=== PATIENT | male | born 1970 | race Caucasian/White ===

== ENCOUNTER 2018-10-14 10:08 | Emergency (ER) | payer OTHER ==
[~2018-10-14] VITALS: Ht 157.5 cm; Wt 65.8 kg
[2018-10-14 10:13] VITALS: BP 120/90
[2018-10-14] MEDS ORDERED: [UNRECOGNIZED DRUG - CODE] PO (11:06)
--- NOTE | 2018-10-29 13:18 | ED Cardiac General ---
History of Present Illness General Chief Complaint: Chest Pain Nursing Triage Note: test History of Present Illness Date Seen by Provider: Oct 29, 2018 Time Seen by Provider: 13:17 Allergies and Home Medications Allergies Coded Allergies: No Known Drug Allergies (Unverified , 10/14/18) Home Medications Montez Syrup 473 Ml Syrup, 30 ML PO ONCE Prescribed by: TANNA MCKENNA on 10/14/18 1106 Patient Home Medication List Home Medication List Reviewed: Yes Review of Systems Review of Systems Constitutional: no symptoms reported Respiratory: No Symptoms Reported, See HPI Cardiovascular: No Symptoms Reported, See HPI Gastrointestinal: No Symptoms Reported, See HPI Genitourinary: No Symptoms Reported, See HPI Psychiatric/Neurological: No Symptoms Reported, See HPI Endocrine: No Symptoms Reported, See HPI Hematologic/Lymphatic: No Symptoms Reported, See HPI Past Tahlfmq-Szdzdh-Qeejgu Hx Patient Social History Recent Foreign Travel: No Contact w/Someone Who Travel: No Recent Infectious Disease Expo: No Physical Exam Vital Signs Capillary Refill : NONE Height, Weight, BMI Height: 5'2.00" Weight: 145lbs. 0oz. 65.516367aw; BMI Method:Stated General Appearance: No Apparent Distress Progress/Results/Core Measures Results/Orders My Orders Orders - GAMALIEL MORRIS MD Iv Push Traffic Control Specialist Ed (10/14/18 ) Im Injection Antibiotic Ed (10/14/18 15:00) Flu Vac Powell Ed (10/14/18 ) Vaccine Administration Single (10/14/18 ) Im Injection Antibiotic Ed (10/29/18 ) Vaccine Administration Single (10/29/18 ) Blood Pressure Mean: 100 Departure Impression Primary Impression: Chest wall pain Additional Impression: Chest pain Disposition: 01 HOME, SELF-CARE Condition: Improved Departure-Patient Inst. Patient Instructions: Acid Reflux (Gastroesophageal Reflux Disease), Adult (DC) Scripts Montez Syrup (Montez Syrup) 473 Ml Syrup 30 ML PO ONCE for 1 Day, ML Prov: GAMALIEL MORRIS MD 10/14/18 GAMALIEL MORRIS MD Oct 29, 2018 13:18
--- NOTE | 2018-10-29 13:28 | ED Cardiac General ---
History of Present Illness General Chief Complaint: Chest Pain Nursing Triage Note: test History of Present Illness Date Seen by Provider: Oct 29, 2018 Time Seen by Provider: 13:28 Allergies and Home Medications Allergies Coded Allergies: No Known Drug Allergies (Unverified , 10/14/18) Home Medications Montez Syrup 473 Ml Syrup, 30 ML PO ONCE Prescribed by: TANNA MCKENNA on 10/14/18 1106 Patient Home Medication List Home Medication List Reviewed: Yes Review of Systems Review of Systems Constitutional: no symptoms reported Respiratory: No Symptoms Reported, See HPI Cardiovascular: No Symptoms Reported, See HPI Gastrointestinal: No Symptoms Reported, See HPI Genitourinary: No Symptoms Reported, See HPI Psychiatric/Neurological: No Symptoms Reported, See HPI Endocrine: No Symptoms Reported, See HPI Hematologic/Lymphatic: No Symptoms Reported, See HPI Past Zupghkx-Rathmi-Zovoud Hx Patient Social History Recent Foreign Travel: No Contact w/Someone Who Travel: No Recent Infectious Disease Expo: No Physical Exam Vital Signs Capillary Refill : NONE Height, Weight, BMI Height: 5'2.00" Weight: 145lbs. 0oz. 65.610506vf; BMI Method:Stated General Appearance: No Apparent Distress Progress/Results/Core Measures Results/Orders My Orders Orders - GAMALIEL MORRIS MD Iv Push Merchant Tailor Ed (10/14/18 ) Im Injection Antibiotic Ed (10/14/18 15:00) Flu Vac Powell Ed (10/14/18 ) Vaccine Administration Single (10/14/18 ) Im Injection Antibiotic Ed (10/29/18 ) Vaccine Administration Single (10/29/18 ) Blood Pressure Mean: 100 Departure Impression Primary Impression: Chest wall pain Additional Impression: Chest pain Disposition: 01 HOME, SELF-CARE Condition: Improved Departure-Patient Inst. Patient Instructions: Acid Reflux (Gastroesophageal Reflux Disease), Adult (DC) Scripts Montez Syrup (Montez Syrup) 473 Ml Syrup 30 ML PO ONCE for 1 Day, ML Prov: GAMALIEL MORRIS MD 10/14/18 Copy Copies To 1: GAMALIEL MORRIS MD, JOHN E MD Oct 29, 2018 13:28
--- NOTE | 2018-10-29 13:58 | ED Cardiac General ---
History of Present Illness General Chief Complaint: Chest Pain Nursing Triage Note: test History of Present Illness Date Seen by Provider: Oct 29, 2018 Time Seen by Provider: 13:58 Allergies and Home Medications Allergies Coded Allergies: No Known Drug Allergies (Unverified , 10/14/18) Home Medications Montez Syrup 473 Ml Syrup, 30 ML PO ONCE Prescribed by: TANNA MCKENNA on 10/14/18 1106 Patient Home Medication List Home Medication List Reviewed: Yes Review of Systems Review of Systems Constitutional: no symptoms reported Respiratory: No Symptoms Reported, See HPI Cardiovascular: No Symptoms Reported, See HPI Gastrointestinal: No Symptoms Reported, See HPI Genitourinary: No Symptoms Reported, See HPI Psychiatric/Neurological: No Symptoms Reported, See HPI Endocrine: No Symptoms Reported, See HPI Hematologic/Lymphatic: No Symptoms Reported, See HPI Past Vwkhkeh-Gbshoo-Ldgprt Hx Patient Social History Recent Foreign Travel: No Contact w/Someone Who Travel: No Recent Infectious Disease Expo: No Physical Exam Vital Signs Capillary Refill : NONE Height, Weight, BMI Height: 5'2.00" Weight: 145lbs. 0oz. 65.720234qx; BMI Method:Stated General Appearance: No Apparent Distress Progress/Results/Core Measures Results/Orders My Orders Orders - GAMALIEL MORRIS MD Iv Push Channeler Insole Ed (10/14/18 ) Im Injection Antibiotic Ed (10/14/18 15:00) Flu Vac Powell Ed (10/14/18 ) Vaccine Administration Single (10/14/18 ) Im Injection Antibiotic Ed (10/29/18 ) Vaccine Administration Single (10/29/18 ) Blood Pressure Mean: 100 Departure Impression Primary Impression: Chest wall pain Additional Impression: Chest pain Disposition: 01 HOME, SELF-CARE Condition: Improved Departure-Patient Inst. Patient Instructions: Acid Reflux (Gastroesophageal Reflux Disease), Adult (DC) Scripts Montez Syrup (Montez Syrup) 473 Ml Syrup 30 ML PO ONCE for 1 Day, ML Prov: GAMALIEL MORRIS MD 10/14/18 Copy Copies To 1: GAMALIEL MORRIS MD, JOHN E MD Oct 29, 2018 13:58
--- NOTE | 2018-10-29 14:04 | ED Cardiac General ---
History of Present Illness General Chief Complaint: Chest Pain Nursing Triage Note: test History of Present Illness Date Seen by Provider: Oct 29, 2018 Time Seen by Provider: 14:03 Allergies and Home Medications Allergies Coded Allergies: No Known Drug Allergies (Unverified , 10/14/18) Home Medications Montez Syrup 473 Ml Syrup, 30 ML PO ONCE Prescribed by: TANNA MCKENNA on 10/14/18 1106 Patient Home Medication List Home Medication List Reviewed: Yes Review of Systems Review of Systems Constitutional: no symptoms reported Respiratory: No Symptoms Reported, See HPI Cardiovascular: No Symptoms Reported, See HPI Gastrointestinal: No Symptoms Reported, See HPI Genitourinary: No Symptoms Reported, See HPI Psychiatric/Neurological: No Symptoms Reported, See HPI Endocrine: No Symptoms Reported, See HPI Hematologic/Lymphatic: No Symptoms Reported, See HPI Past Fhkfepa-Avbane-Lvotps Hx Patient Social History Recent Foreign Travel: No Contact w/Someone Who Travel: No Recent Infectious Disease Expo: No Physical Exam Vital Signs Capillary Refill : NONE Height, Weight, BMI Height: 5'2.00" Weight: 145lbs. 0oz. 65.454724ir; BMI Method:Stated General Appearance: No Apparent Distress HEENT: PERRL/EOMI, TMs Normal, Normal ENT Inspection, Pharynx Normal Neck: Full Range of Motion, Normal Inspection, Non Tender Respiratory: Chest Non Tender, Lungs Clear, Normal Breath Sounds, No Accessory Muscle Use, No Respiratory Distress Cardiovascular: Regular Rate, Rhythm, No Edema, No Gallop, No JVD, No Murmur, Normal Peripheral Pulses Gastrointestinal: Normal Bowel Sounds, No Organomegaly, No Pulsatile Mass, Non Tender Extremity: Normal Capillary Refill, Normal Inspection, Normal Range of Motion, Non Tender, No Calf Tenderness, No Pedal Edema Neurologic/Psychiatric: Alert, Oriented x3, No Motor/Sensory Deficits, Normal Mood/Affect Skin: Normal Color, Warm/Dry Lymphatic: No Adenopathy Progress/Results/Core Measures Results/Orders My Orders Orders - MORRISGAMALIEL Akins MD Iv Push Audiology Technician Ed (10/14/18 ) Im Injection Antibiotic Ed (10/14/18 15:00) Flu Vac Powell Ed (10/14/18 ) Vaccine Administration Single (10/14/18 ) Im Injection Antibiotic Ed (10/29/18 ) Vaccine Administration Single (10/29/18 ) Blood Pressure Mean: 100 Departure Impression Primary Impression: Chest wall pain Additional Impression: Chest pain Disposition: 01 HOME, SELF-CARE Condition: Improved Departure-Patient Inst. Patient Instructions: Acid Reflux (Gastroesophageal Reflux Disease), Adult (DC) Scripts Montez Syrup (Montez Syrup) 473 Ml Syrup 30 ML PO ONCE for 1 Day, ML Prov: GAMALIEL MORRIS MD 10/14/18 Copy Copies To 1: GAMALIEL MORRIS MD, JOHN E MD Oct 29, 2018 14:04
--- NOTE | 2018-10-29 14:08 | ED Cardiac General ---
History of Present Illness General Chief Complaint: Chest Pain Nursing Triage Note: test History of Present Illness Date Seen by Provider: Oct 29, 2018 Time Seen by Provider: 14:07 Allergies and Home Medications Allergies Coded Allergies: No Known Drug Allergies (Unverified , 10/14/18) Home Medications Montez Syrup 473 Ml Syrup, 30 ML PO ONCE Prescribed by: TANNA MCKENNA on 10/14/18 1106 Patient Home Medication List Home Medication List Reviewed: Yes Review of Systems Review of Systems Constitutional: no symptoms reported Respiratory: No Symptoms Reported, See HPI Cardiovascular: No Symptoms Reported, See HPI Gastrointestinal: No Symptoms Reported, See HPI Genitourinary: No Symptoms Reported, See HPI Psychiatric/Neurological: No Symptoms Reported, See HPI Endocrine: No Symptoms Reported, See HPI Hematologic/Lymphatic: No Symptoms Reported, See HPI Past Mginuov-Hyjtdk-Dxdxdv Hx Patient Social History Recent Foreign Travel: No Contact w/Someone Who Travel: No Recent Infectious Disease Expo: No Physical Exam Vital Signs Capillary Refill : NONE Height, Weight, BMI Height: 5'2.00" Weight: 145lbs. 0oz. 65.111379fm; BMI Method:Stated General Appearance: No Apparent Distress, WD/WN HEENT: PERRL/EOMI, TMs Normal, Normal ENT Inspection, Pharynx Normal Neck: Full Range of Motion, Normal Inspection, Non Tender Respiratory: Chest Non Tender, Lungs Clear, Normal Breath Sounds, No Accessory Muscle Use, No Respiratory Distress Cardiovascular: Regular Rate, Rhythm, No Edema, No Gallop, No JVD, No Murmur, Normal Peripheral Pulses Gastrointestinal: Normal Bowel Sounds, No Organomegaly, No Pulsatile Mass, Non Tender Extremity: Normal Capillary Refill, Normal Inspection, Normal Range of Motion, Non Tender, No Calf Tenderness, No Pedal Edema Neurologic/Psychiatric: Alert, Oriented x3, No Motor/Sensory Deficits, Normal Mood/Affect Skin: Normal Color, Warm/Dry Lymphatic: No Adenopathy Progress/Results/Core Measures Results/Orders My Orders Orders - MORRISGAMALIEL Akins MD Iv Push Warp Doffer Ed (10/14/18 ) Im Injection Antibiotic Ed (10/14/18 15:00) Flu Vac Powell Ed (10/14/18 ) Vaccine Administration Single (10/14/18 ) Im Injection Antibiotic Ed (10/29/18 ) Vaccine Administration Single (10/29/18 ) Blood Pressure Mean: 100 Departure Impression Primary Impression: Chest wall pain Additional Impression: Chest pain Disposition: 01 HOME, SELF-CARE Condition: Improved Departure-Patient Inst. Patient Instructions: Acid Reflux (Gastroesophageal Reflux Disease), Adult (DC) Scripts Montez Syrup (Montez Syrup) 473 Ml Syrup 30 ML PO ONCE for 1 Day, ML Prov: GAMALIEL MORRIS MD 10/14/18 Copy Copies To 1: GAMALIEL MORRIS MD, JOHN E MD Oct 29, 2018 14:08
--- NOTE | 2018-10-29 14:14 | ED Cardiac General ---
History of Present Illness General Chief Complaint: Chest Pain Nursing Triage Note: test Source: patient Exam Limitations: no limitations History of Present Illness Date Seen by Provider: Oct 29, 2018 Time Seen by Provider: 14:13 Allergies and Home Medications Allergies Coded Allergies: No Known Drug Allergies (Unverified , 10/14/18) Home Medications Montez Syrup 473 Ml Syrup, 30 ML PO ONCE Prescribed by: TANNA MCKENNA on 10/14/18 1106 Patient Home Medication List Home Medication List Reviewed: Yes Review of Systems Review of Systems Constitutional: no symptoms reported Respiratory: No Symptoms Reported, See HPI Cardiovascular: No Symptoms Reported, See HPI Gastrointestinal: No Symptoms Reported, See HPI Genitourinary: No Symptoms Reported, See HPI Psychiatric/Neurological: No Symptoms Reported, See HPI Endocrine: No Symptoms Reported, See HPI Hematologic/Lymphatic: No Symptoms Reported, See HPI Past Pfzrbvp-Varcxq-Cgzoqc Hx Patient Social History Recent Foreign Travel: No Contact w/Someone Who Travel: No Recent Infectious Disease Expo: No Physical Exam Vital Signs Capillary Refill : NONE Height, Weight, BMI Height: 5'2.00" Weight: 145lbs. 0oz. 65.132067pd; BMI Method:Stated General Appearance: No Apparent Distress, WD/WN HEENT: PERRL/EOMI, TMs Normal, Normal ENT Inspection, Pharynx Normal Neck: Full Range of Motion, Normal Inspection, Non Tender Respiratory: Chest Non Tender, Lungs Clear, Normal Breath Sounds, No Accessory Muscle Use, No Respiratory Distress Cardiovascular: Regular Rate, Rhythm, No Edema, No Gallop, No JVD, No Murmur, Normal Peripheral Pulses Gastrointestinal: Normal Bowel Sounds, No Organomegaly, No Pulsatile Mass, Non Tender Extremity: Normal Capillary Refill, Normal Inspection, Normal Range of Motion, Non Tender, No Calf Tenderness, No Pedal Edema Neurologic/Psychiatric: Alert, Oriented x3, No Motor/Sensory Deficits, Normal Mood/Affect Skin: Normal Color, Warm/Dry Lymphatic: No Adenopathy Progress/Results/Core Measures Results/Orders My Orders Orders - GAMALIEL MORRIS MD Iv Push Nursing Surgical Services Director Ed (10/14/18 ) Im Injection Antibiotic Ed (10/14/18 15:00) Flu Vac Powell Ed (10/14/18 ) Vaccine Administration Single (10/14/18 ) Im Injection Antibiotic Ed (10/29/18 ) Vaccine Administration Single (10/29/18 ) Blood Pressure Mean: 100 Departure Impression Primary Impression: Chest wall pain Additional Impression: Chest pain Disposition: 01 HOME, SELF-CARE Condition: Improved Departure-Patient Inst. Patient Instructions: Acid Reflux (Gastroesophageal Reflux Disease), Adult (DC) Scripts Montez Syrup (Montez Syrup) 473 Ml Syrup 30 ML PO ONCE for 1 Day, ML Prov: GAMALIEL MORRIS MD 10/14/18 Copy Copies To 1: GAMALIEL MORRIS MD, JOHN E MD Oct 29, 2018 14:14
--- NOTE | 2018-10-29 14:18 | ED Cardiac General ---
History of Present Illness General Chief Complaint: Chest Pain Nursing Triage Note: test Source: patient Exam Limitations: no limitations History of Present Illness Date Seen by Provider: Oct 29, 2018 Time Seen by Provider: 14:17 Allergies and Home Medications Allergies Coded Allergies: No Known Drug Allergies (Unverified , 10/14/18) Home Medications Montez Syrup 473 Ml Syrup, 30 ML PO ONCE Prescribed by: TANNA MCKENNA on 10/14/18 1106 Patient Home Medication List Home Medication List Reviewed: Yes Review of Systems Review of Systems Constitutional: no symptoms reported Respiratory: No Symptoms Reported, See HPI Cardiovascular: No Symptoms Reported, See HPI Gastrointestinal: No Symptoms Reported, See HPI Genitourinary: No Symptoms Reported, See HPI Psychiatric/Neurological: No Symptoms Reported, See HPI Endocrine: No Symptoms Reported, See HPI Hematologic/Lymphatic: No Symptoms Reported, See HPI Past Eafnvzy-Lghgjy-Yzulln Hx Patient Social History Recent Foreign Travel: No Contact w/Someone Who Travel: No Recent Infectious Disease Expo: No Physical Exam Vital Signs Capillary Refill : NONE Height, Weight, BMI Height: 5'2.00" Weight: 145lbs. 0oz. 65.729685zy; BMI Method:Stated General Appearance: No Apparent Distress, WD/WN HEENT: PERRL/EOMI, TMs Normal, Normal ENT Inspection, Pharynx Normal Neck: Full Range of Motion, Normal Inspection, Non Tender Respiratory: Chest Non Tender, Lungs Clear, Normal Breath Sounds, No Accessory Muscle Use, No Respiratory Distress Cardiovascular: Regular Rate, Rhythm, No Edema, No Gallop, No JVD, No Murmur, Normal Peripheral Pulses Gastrointestinal: Normal Bowel Sounds, No Organomegaly, No Pulsatile Mass, Non Tender Extremity: Normal Capillary Refill, Normal Inspection, Normal Range of Motion, Non Tender, No Calf Tenderness, No Pedal Edema Neurologic/Psychiatric: Alert, Oriented x3, No Motor/Sensory Deficits, Normal Mood/Affect Skin: Normal Color, Warm/Dry Lymphatic: No Adenopathy Progress/Results/Core Measures Results/Orders My Orders Orders - GAMALIEL MORRIS MD Iv Push Manual Tester Ed (10/14/18 ) Im Injection Antibiotic Ed (10/14/18 15:00) Flu Vac Powell Ed (10/14/18 ) Vaccine Administration Single (10/14/18 ) Im Injection Antibiotic Ed (10/29/18 ) Vaccine Administration Single (10/29/18 ) Blood Pressure Mean: 100 Departure Impression Primary Impression: Chest wall pain Additional Impression: Chest pain Disposition: 01 HOME, SELF-CARE Condition: Improved Departure-Patient Inst. Patient Instructions: Acid Reflux (Gastroesophageal Reflux Disease), Adult (DC) Scripts Montez Syrup (Montez Syrup) 473 Ml Syrup 30 ML PO ONCE for 1 Day, ML Prov: GAMALIEL MORRIS MD 10/14/18 Copy Copies To 1: GAMALIEL MORRIS MD, JOHN E MD Oct 29, 2018 14:18
--- NOTE | 2018-10-29 14:23 | ED Cardiac General ---
History of Present Illness General Chief Complaint: Chest Pain Nursing Triage Note: test History of Present Illness Date Seen by Provider: Oct 29, 2018 Time Seen by Provider: 14:23 Allergies and Home Medications Allergies Coded Allergies: No Known Drug Allergies (Unverified , 10/14/18) Home Medications Montez Syrup 473 Ml Syrup, 30 ML PO ONCE Prescribed by: TANNA MCKENNA on 10/14/18 1106 Patient Home Medication List Home Medication List Reviewed: Yes Review of Systems Review of Systems Constitutional: no symptoms reported Respiratory: No Symptoms Reported, See HPI Cardiovascular: No Symptoms Reported, See HPI Gastrointestinal: No Symptoms Reported, See HPI Genitourinary: No Symptoms Reported, See HPI Psychiatric/Neurological: No Symptoms Reported, See HPI Endocrine: No Symptoms Reported, See HPI Hematologic/Lymphatic: No Symptoms Reported, See HPI Past Fskpkzq-Afhttq-Ysjamn Hx Patient Social History Recent Foreign Travel: No Contact w/Someone Who Travel: No Recent Infectious Disease Expo: No Physical Exam Vital Signs Capillary Refill : NONE Height, Weight, BMI Height: 5'2.00" Weight: 145lbs. 0oz. 65.530003np; BMI Method:Stated General Appearance: No Apparent Distress, WD/WN HEENT: PERRL/EOMI, TMs Normal, Normal ENT Inspection, Pharynx Normal Neck: Full Range of Motion, Normal Inspection, Non Tender Respiratory: Chest Non Tender, Lungs Clear, Normal Breath Sounds, No Accessory Muscle Use, No Respiratory Distress Cardiovascular: Regular Rate, Rhythm, No Edema, No Gallop, No JVD, No Murmur, Normal Peripheral Pulses Gastrointestinal: Normal Bowel Sounds, No Organomegaly, No Pulsatile Mass, Non Tender Extremity: Normal Capillary Refill, Normal Inspection, Normal Range of Motion, Non Tender, No Calf Tenderness, No Pedal Edema Neurologic/Psychiatric: Alert, Oriented x3, No Motor/Sensory Deficits, Normal Mood/Affect Skin: Normal Color, Warm/Dry Lymphatic: No Adenopathy Progress/Results/Core Measures Results/Orders My Orders Orders - MORRISGAMALIEL Akins MD Iv Push Floater Operator Ed (10/14/18 ) Im Injection Antibiotic Ed (10/14/18 15:00) Flu Vac Powell Ed (10/14/18 ) Vaccine Administration Single (10/14/18 ) Im Injection Antibiotic Ed (10/29/18 ) Vaccine Administration Single (10/29/18 ) Blood Pressure Mean: 100 Departure Impression Primary Impression: Chest wall pain Additional Impression: Chest pain Disposition: 01 HOME, SELF-CARE Condition: Improved Departure-Patient Inst. Patient Instructions: Acid Reflux (Gastroesophageal Reflux Disease), Adult (DC) Scripts Montez Syrup (Montez Syrup) 473 Ml Syrup 30 ML PO ONCE for 1 Day, ML Prov: GAMALIEL MORRIS MD 10/14/18 Copy Copies To 1: GAMALIEL MORRIS MD, JOHN E MD Oct 29, 2018 14:23
== END 2018-10-29 | disposition home or self-care (01) ==
LOC: EDSEX → ER FS 12:46
CPT/HCPCS: 90471; 96366; 96372; 96374; 96375; 96376; 99281

== ENCOUNTER → 2021-11-25 | Outpatient (CLI) | payer OTHER ==
[~2021-11-25] MED LIST: ACHD5005 PO; BENZ100C18 PO; HYDR-34 PO; OXYC1TAB15 PO; [UNRECOGNIZED DRUG - CODE] MC; [UNRECOGNIZED DRUG - CODE] PO
== END | disposition home or self-care (01) ==
LOC: CARDFS 11:44

== ENCOUNTER → 2022-01-23 | Outpatient (CLI) | payer OTHER | LOC: LAB FS 10-21 08:40 → CARD 13:49 | DX: Z13.6 Encounter for screening for cardiovascular disorders (principal) | CPT/HCPCS: 36415; 80053; 80055; 80061; 93303; 93320; 93325 ==